=== PATIENT | male | born 1945 | race Caucasian/White ===

== ENCOUNTER 2016-07-11 08:51 | Day surgery (SDC) | payer MEDICARE, OTHER ==
--- NOTE | 2016-07-10 12:53 | PCM.ANEPRE ---
Anesthesia Pre-Op Review Reason for Review: elevated BMI- sob Anesthesia Recommendations: Proceed with Procedure Additional Comments 70 yo M with BMI 47, ROXANA on CPAP, asthma, HTN, opioid dependence who is scheduled for cystoscopy with bladder botox. Patient tolerated total hip arthroplasty one year ago and reportedly negative stress test on 05/15. TTE from 2013 showed EF 60-65% with mild diastolic dysfunction. Assuming patient has had no new symptoms, no further testing is necessary at this time. Chart Reviewed by: MD Beba Arredondo Eric J MD Jul 10, 2016 12:53
[2016-07-11] VITALS (9 sets, daily range): BP systolic 86–133; BP diastolic 43–70; PULSE 78–108; RESP 14–22; O2SAT 90–97
[~2016-07-11] VITALS: Ht 180.3 cm; Wt 153.0 kg
[~2016-07-11 08:51] MED LIST: AMLO5TAB2 PO; AMT25T PO; Botulinum Toxin Type-A 100 unit Inj IM ONE; CeFAZolin 2 Gm/50 mL D5W IV Premix IV ONE; CeFAZolin Inj 3 GM in IV Premix IV ONE; DOXE150C7 PO; Dexamethasone 4 mg/mL Inj IVPUSH PRN; EPHEDrine Sulfate 50 mg/mL Inj IVPUSH PRN; ETOD400T PO; FINA5TAB9 PO; FLUT50DI IH; HYDROmorphone 1 mg/mL Inj IVPUSH PRN; LISI40TA PO; LORA10CA PO; Labetalol 5 mg/mL 4 mL Inj IV PRN; Lactated Ringer's 1,000 ML IV SCH; Lactated Ringer's 500 ML IV PRN; MetoCLOpramide 5 mg/mL 2 mL Inj IVPUSH PRN; OXYB5TAB10 PO; Ondansetron 2 mg/mL 2 mL Inj IVPUSH PRN; POTA10TA12 PO; Phenylephrine 10,000 mCg/mL Inj IVPUSH PRN; SENN-133 PO; SURFAK; TERA10CA5 PO; TRIA1CAP5 PO; fentaNYL-PF 50 mCg/mL 2 mL Inj IVPUSH PRN; vicodin
[2016-07-11] MEDS ORDERED: Chloroprocaine-MPF 2% 20 mL Inj ONE (08:52)
[2016-07-11] MEDS ORDERED: CeFAZolin Inj 3 Gm/ D5W 50 mL Bag IV ONE (09:12)
[2016-07-11] MEDS ORDERED: Lactated Ringer's 1,000 ML IV ONE (09:31)
[2016-07-11] MEDS ORDERED: MS30TCR PO (10:28)
[2016-07-11] MEDS ORDERED: Belladonna Alk-Opium 60 mg Rectal Suppository RECTAL ONE (10:28)
[2016-07-11] MEDS ORDERED: OXYC-466 PO (10:28)
[2016-07-11] MEDS ORDERED: Botulinum Toxin Type-A 100 unit Inj IM ONE (11:04)
--- NOTE | 2016-07-11 11:13 | PCM.HPANE ---
Patient Data Date of Service: Jul 11, 2016 Surgeon Admitting Provider: Attending Provider:Lesly Poe MD Primary Care Physician:Micky Deleon MD Other Provider:Jonn Oliva Anesthesia Reason for Visit Frequency Of Micturition, Urgency Of Urniation Ht/WT & BMI Height (Feet): 5 Height (Inches): 11.00 Weight (Kilograms): 153.000 Body Mass Index 47.00 Allergies Coded Allergies: No Known Allergies (Verified Allergy, Unknown, 03/11/13) Past Anesthesia History Anesthesia History: Denies:: Abnormal Airway, Anesthesia Reactions, Difficult Intubation, Fam Anesthesia Reaction, Fam Malignant Hypertherm, Malignant Hyperthermia Diabetes History Hx Diabetes?: No MRSA MRSA: No Medications Hypertension Medication: Yes Home Meds Incl Beta Casie: No Reported Medications Morphine Sulfate ER (MS Contin)30 Mg Tablet.er30 Mg PO BID Ref 0 07/11/16 oxyCODONE-Acetaminophen 10-325 mg 1 Each Tablet1 Tablet PO Q4H PRN For Pain Ref 0 07/11/16 Triamterene/HCTZ 37.5-25 mg 1 Each Capsule0.5 Capsule PO DAILY Ref 0 07/09/16 Terazosin 10 Mg Beswfhh48 Mg PO HS Ref 0 07/09/16 [surfak] 240mg No Conflict Check4 Capsule HS 07/09/16 Potassium Chloride ER 10 Meq Nbawzt44 Meq PO DAILY Ref 0 TAKE WITH FOOD 07/09/16 Oxybutynin Chloride 5 Mg Iyblod25 Mg PO BID Ref 0 07/09/16 Lisinopril 40 Mg Wsrpwk62 Mg PO DAILY 30 Days Ref 0 07/09/16 Sennosides (Senna)8.6 Mg Tablet4 Tab PO HS PRN For Constipation 07/09/16 Fluticasone Propionate (Flovent Diskus)50 Mcg Disk.w.dev1 Puff IH BID #1 INHALER Ref 0 07/09/16 Finasteride 5 Mg Tablet5 Mg PO DAILY 30 Days Ref 0 07/09/16 Etodolac 400 Mg Wobrvm873 Mg PO BID 07/09/16 Doxepin 150 Mg Dxhhqav729 Mg PO HS PRN Insomnia 07/09/16 Loratadine (Claritin)10 Mg Djvzbvl05 Mg PO DAILY Ref 0 07/09/16 Amlodipine 5 Mg Tablet5 Mg PO DAILY Ref 0 07/09/16 Amitriptyline 25 Mg Tab25 Mg PO HS Ref 0 07/09/16 Discontinued Reported Medications [vicodin] 7.5/750mg No Conflict CheckUnknown Dose PRN For Pain 07/09/16 Loratadine-Expunged Drug, Do Not Renew! 10 Mg Ialtkc09 Mg PO DAILY 03/12/13 Oxybutynin-Expunged Drug, Do Not Renew! 5 Mg Tablet2.5 Mg PO BID 03/12/13 [doxazosin] No Conflict Check8 Mg PO HS 03/12/13 [acyclovir] No Conflict Check Po Prn 03/12/13 Senna-Expunged Drug, Do Not Renew! (Senokot-Expunged Drug, Do Not Renew!)8.6 Mg Tablet8.6 Mg PO HS 03/12/13 [itratropium] No Conflict Check0.03 % NA 4 times a day 01/07/12 AmLODIPine-Expunged Drug, Do Not Renew! 5 Mg Tablet5 Mg PO DAILY #30 TAB HOLD FOR SBP<[] OR HR<[] 01/07/12 FLUTICASONE-Expunged Drug, Do Not Renew! (FLONASE-Expunged Drug, Do Not Renew!) 120 Sprays/16 Gm Vhqg601 Sprays NA DAILY 01/07/12 Niacin-Expunged Drug, Do Not Renew! (Niacor-Expunged Drug, Do Not Renew!)500 Mg Tablet1,000 Mg PO BID Ref 0 01/24/09 Docusate Calcium-Expunged Drug, Do Not Renew! (Surfak-Expunged Drug, Do Not Renew!)240 Mg Ticoiqw318 Mg PO HS Ref 0 01/24/09 Lisinopril-Expunged Drug, Do Not Renew! 40 Mg Zaicaz16 Mg PO DAILY Ref 0 01/24/09 Doxepin-Expunged Drug, Do Not Renew! 100 Mg Sji013 Mg PO HS Ref 0 01/24/09 Potassium Chl-Expunged Drug, Do Not Renew! 8 Meq Capsule.sa10 Meq PO DAILY Ref 0 01/24/09 Triamterene/HCTZ-Expunged Drug, Do Not Renew! (Triamterene/HCTZ 37.5/25-Expunged ,Do Not Renw)1 Tab Tablet0.5 Tab PO DAILY Ref 0 01/24/09 Etodolac-Expunged Drug, Do Not Renew! (Lodine-Expunged Drug, Do Not Renew!)400 Mg Fgguic762 Mg PO BID Ref 0 01/24/09 Hydrocod/APAP-Expunged, Do Not Renew! (Hydrocod/APAP -Expunged, Do Not Renew!)1 Tab Tablet1 Tab PO Q4 Ref 0 dose is 7.5/750mg 01/24/09 History History of ENT Problems?: Yes HEENT History: Positive for:: Cataracts (bilateral ) Sinus Problem Denies:: Abnormal Airway Difficult Intubation Dysphagia Glaucoma Hearing Problem TMJ Denture Type: Full- Upper Hx of Heart Problems?: Yes Cardiovascular History: Positive for:: Edema Hypertension Denies:: AICD Abdominal Aortic Aneurism Atrial Fibrillation Cardiac Surgery Chest Pain Congestive Heart Failure Heart Murmur Irregular Heartbeat Pacemaker Rheumatic Fever Thrombophlebitis Valvular Heart Disease (ef 60-65% - 2013) Hx of Respiratory Problem?: Yes Respiratory History: Positive for:: Asthma COPD Dyspnea Use of C-PAP Machine Use of Inhalers / NEBS Denies:: Chest Surgery Cough Emphysema Hemoptysis Oxygen Administration Pneumonia Pulmonary Embolism Tuberculosis Hx Neurologic Problems?: Yes Neurological History: Denies:: Alzheimer's Disease CVA Dementia Dizziness Headaches Multiple Sclerosis Parkinson's Disease Seizures Hx of GI Problems?: Yes Gastrointestinal History: Positive for:: Gastroesphageal Reflux Heartburn Denies:: Cirrhosis Diverticulitis Gall Bladder Disease Gastrointestinal Bleeding Hepatitis Hiatal Hernia Liver Disease Rectal Bleeding Hx of Problems?: Yes Genitourinary History: Denies:: Kidney Stones Urinary Tract Infection HX of Peritoneal Dialysis: No Male Hx: Positive for:: Prostate Problems (BPH current admission) Denies:: Scrotal Mass Testicular Surgery Skin History: Denies:: History Skin Disorders? Pressure Ulcers Hx Musculoskeletal Problems?: Yes Musculoskeletal History: Positive for:: Back Injury (chronic back- lami long ago) Joint Replacement (total right hip, left partial knee, total L shoulder ) Osteoarthritis Denies:: Degenerative Joint Musculoskeletal Trauma Systemic Lupus Hx of Psycho/Social Problems?: Yes Psycho Social History: Positive for:: Hx Depression (not for years) Denies:: Anxiety Bipolar Disorder Suicide Attempt Hx Surgeries?: Yes (total hip, knee, shoulder, ) Hx Any Other Health Problems?: Yes Other History: Denies:: Cancer Endocrine Disease Hospitalization Thyroid Disease History Blood Transfusions: Positive for:: Accept Blood Products? Denies:: Blood Transfuse Reaction Blood Transfusions Hx Diabetes: No Hx Alcohol Use: NoHx Substance Use: NoHave You Smoked inLast 12 mo: No Stop/Bang Treated for Sleep Apnea?: Yes Do You Have a CPAP Machine?: Yes S-Snoring: Do You Snore Loudly: Yes T-Tired: feel tired, fatigued: Yes O-Obsered: Observed not breath: Yes P-Blood Pressure: treated: Yes B- Body Mass Index > 35 kg/m2: Yes A- Age over 50: Yes N- Neck Large Circumference: Yes G- Gender Male: Yes ROXANA Risk Assessment: High Risk, =/>3 Yes ROXANA Category 2: Yes Risk Assessment Category Category 1A: Patient has history of documented sleep apnea, and HAS NOT received any narcotic, sedative or anesthesia administration during this stay. Category 1B: Patient has history of documented sleep apnea, and HAS received any narcotic , sedative or anesthesia administration during this stay Category 2: Patient has SUSPECTED Obstructive Sleep Apnea, and HAS received any narcotic , sedative or anesthesia administration during this stay. Category 3: Patient has SUSPECTED Obstructive Sleep Apnea and HAS NOT received narcotic, sedative or anesthesia administration during this stay. Category 4: Outpatient in Procedural Areas with known sleep apnea or who screen positive for High Risk via the STOP/BANG questionnaire. Exam Exam Vital Signs Vital Signs Date Time Temp Pulse Resp B/P Pulse Ox O2 Delivery O2 Flow Rate FiO2 07/11/16 09:35 36.2 108 22 103/70 90 Room Air General Appearance: Alert, Oriented X3, Cooperative, No Acute Distress HEENT/AIRWAY: MP 4, Mouth Opening (small mouth opening, upper dentures) Lungs: Clear to Auscultation, Normal Air Movement Heart: Exam Unremarkable, Regular Rate/Rhythm, No Murmurs/Rubs/Gallops Meds/Labs/Diagnostics Admission Meds Current Medications Lactated Ringer's (Lr) 1,000 ml @ ud STK-MED ONCE IV Last administered on 07/11 09:31; Start 07/11/16 at 09:31; Stop 07/11/16 at 09:32; Status DC Botulinum Toxin Type A (Botox Inj) 100 unit STK-MED ONCE IM Last administered on 07/11/16 11:04; Start 07/11/16 at 11:04; Stop 07/11/16 at 11:09; Status DC Plan Impression Patient chart reviewed, patient interviewed and anesthestic plan with risks, benefits, and alternatives discussed, and informed consent obtained. NPO Status: 07/10/16 AT [place] ASA Physical Status: ASA4 Life Threatening Anesthetic Plan: Regional Block Bene/Risks/Altern/Consents: Yes HP Complete Prior to Induction: Yes Isaac Corbin MD Jul 11, 2016 11:13
[2016-07-11] MEDS ORDERED: HYDROcodone-APAP 5-325 mg Tablet PO PRN (11:25)
--- NOTE | 2016-07-12 00:02 | OP ---
[address] [address] OPERATIVE REPORT PATIENT: TRUNG CLEMENS : 1945 MR#: [id number] ADMIT: 07/11/2016 JOB ID: [id number] DATE OF SURGERY: SURGEON: Lesly Poe MD PREOPERATIVE DIAGNOSIS(ES): Urgency incontinence. POSTOPERATIVE DIAGNOSIS(ES): Urgency incontinence PROCEDURE: Cystoscopy and chemo denervation of the bladder with Botox. ANESTHESIA: Spinal anesthetic, Dr. Corbin. PROCEDURAL DESCRIPTION: Under spinal anesthetic, the patient was placed in lithotomy position. Genitalia prepped and draped in a sterile manner. A 22-Gambian cystoscope was introduced through a normal urethra. A total of 100 units of Botox was injected into the posterior bladder wall between the ureters 0.5 cc at a time for a total of 10 cc. Because a spinal anesthetic had been used, a Quiroz catheter was inserted which will be withdrawn once the spinal was resolved. The patient tolerated the procedure well and left the operating room in good condition.
== END 2016-07-11 23:59 | disposition home or self-care (01) ==
LOC: SAS 08:51
PROVIDERS: ATTEND Urology
DX: N39.41 Urge incontinence (principal); N40.1 Benign prostatic hyperplasia with lower urinary tract symptoms; R35.0 Frequency of micturition; I10 Essential (primary) hypertension; G47.00 Insomnia, unspecified; E78.5 Hyperlipidemia, unspecified; F32.9 Major depressive disorder, single episode, unspecified; F10.21 Alcohol dependence, in remission; G47.33 Obstructive sleep apnea (adult) (pediatric); J45.909 Unspecified asthma, uncomplicated; K21.9 Gastro-esophageal reflux disease without esophagitis; E66.9 Obesity, unspecified; Z68.42 Body mass index [BMI] 45.0-49.9, adult; Z79.51 Long term (current) use of inhaled steroids